=== PATIENT | female | born 1950 | race Caucasian/White ===

== ENCOUNTER 2017-01-25 15:26 | Emergency (ER) | payer OTHER ==
[~2017-01-25] VITALS: Ht 172.7 cm; Wt 82.6 kg
[~2017-01-25 15:26] MED LIST: Z.0.NO CURRENT MEDS
[2017-01-25 15:29] VITALS: PULSE 79; RESP 16; TEMP 97.6; O2SAT 97
[2017-01-25 15:40] VITALS: BP 174/75
[2017-01-25] MEDS ORDERED: b/p med (15:41)
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
[2017-01-25] MEDS ORDERED: ORPHENADRINE INJ 60 MG/2 ML AMP IM ONE (16:00)
[2017-01-25] MEDS ORDERED: KETOROLAC TROMETHAMINE 60 MG/2 ML (IM) VIAL IM ONE (16:00)
[2017-01-25] MEDS ORDERED: ROBA500T PO (16:11)
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
[2017-01-25 18:49] VITALS: RESP 16
== END 2017-01-25 18:51 | disposition home or self-care (01) ==
LOC: PHEFT 15:26
DX: S13.4XXA Sprain of ligaments of cervical spine, initial encounter (principal); V89.2XXA Person injured in unspecified motor-vehicle accident, traffic, initial encounter; Y92.488 Other paved roadways as the place of occurrence of the external cause
CPT/HCPCS: 70450; 72125; 96372; 99285; J1885; J2360

== ENCOUNTER 2017-08-12 10:42 | Emergency (ER) | END 2017-08-12 15:30 | disposition home or self-care (01) | DX: S01.81XA Laceration without foreign body of other part of head, initial encounter (principal); S52.124A Nondisplaced fracture of head of right radius, initial encounter for closed fracture; I10 Essential (primary) hypertension; E78.00 Pure hypercholesterolemia, unspecified; W01.0XXA Fall on same level from slipping, tripping and stumbling without subsequent striking against object, initial encounter; Y93.01 Activity, walking, marching and hiking ==